=== PATIENT | female | born 1990 ===

== ENCOUNTER 2018-12-18 03:01 | Emergency (ER) | payer SELFPAY ==
[~2018-12-18] VITALS: Ht 172.7 cm; Wt 70.0 kg
[2018-12-18 03:07] VITALS: TEMP 97.1
[2018-12-18] MEDS ORDERED: LEVOXYL0.1 MG PO (03:50)
[2018-12-18] MEDS ORDERED: CELEXA 20MG20 MG/TAB PO (03:51)
[2018-12-18] MEDS ORDERED: COMPAZINE 110 MG/TAB PO (04:14)
[2018-12-18 04:27] VITALS: BP 124/68; PULSE 78
== END 2018-12-18 04:29 | disposition home or self-care (01) ==
LOC: COL.ER 03:01
DX: R51 Headache (principal); J45.909 Unspecified asthma, uncomplicated; Z88.0 Allergy status to penicillin; F32.9 Major depressive disorder, single episode, unspecified; Z88.6 Allergy status to analgesic agent; Z88.8 Allergy status to other drugs, medicaments and biological substances